=== PATIENT | male | born 1985 | race Caucasian/White ===

== ENCOUNTER 2021-10-11 10:49 | Emergency (ER) | payer OTHER, SELFPAY ==
--- NOTE | 2021-10-11 10:53 | ED.GENADULT ---
HPI - General Adult General Chief complaint: Upper Respiratory Infection Stated complaint: congestion,sorethroat Time Seen by Provider: 10/11/21 10:53 History of Present Illness HPI narrative: 36-year-old male patient presents to the [facility] with complaints of sinus congestion, runny nose, stuffy nose, decreased hearing to the right ear that has now started to the left ear, and cough that started approximately 2 and half to 3 weeks ago. Patient states that he has not vaccinated against COVID and his was diagnosed with COVID about the time that his symptoms started. Patient states he tested 3 times and every time came up negative. Patient states he was seen earlier this week on Wednesday and was given steroids of 20 mg a day for 5 days. Patient states he feels like it has not really done too much. Patient has also been taking [id number] Mucinex for his symptoms. Denies fever but states he feels like his symptoms are worsening. Denies any history of smoking. Related Data Allergies Allergy/AdvReac Type Severity Reaction Status Date / Time latex Allergy Unknown Verified 10/11/21 11:10 Review of Systems Review of Systems: CONSTITUTIONAL: Denies fever, chills, or sweats. EYES: Denies visual changes, redness, or discharge. ENT: Positive rhinorrhea, congestion, denies sore throat, positive bilateral otalgia. CARDIOVASCULAR: Denies chest pain, palpitations, or edema. RESPIRATORY: Positive productive cough, denies dyspnea. GASTROINTESTINAL: Denies abdominal pain, nausea, vomiting, or diarrhea. GENITOURINARY: Denies dysuria or hematuria. SKIN: Denies rash or itching. MUSCULOSKELETAL: Denies back pain, joint pain, or myalgia. NEUROLOGIC: Positive headache, denies numbness, or weakness. PSYCHIATRIC: Denies anxiety or depression. PMFSH Comments At the time of my signature I agree with nursing past medical history, surgical, social, and family history. There is no relevant family history pertinent to the presenting complaint. Exam Narrative: GENERAL: Well-appearing, well-nourished, and in no acute distress. HEAD: Normocephalic, atraumatic. EYES: PERRLA and EOMI. ENT: Nares with erythema and edema noted bilaterally with the left nare swollen shut, yellow rhinorrhea, no epistaxis. Mucous membranes moist. Posterior pharynx with no erythema, tonsil enlargement, exudates or lesions present. The right TM does have some yellow pus noted behind the eardrum. The left TM does look slightly injected. No foreign bodies noted to the canals. NECK: Supple. No lymphadenopathy CHEST: Clear to auscultation. No respiratory distress. Patient able to talk in clear complete sentences. Does have a mild cough noted during exam HEART: Regular rate and rhythm. No murmur heard. Normal peripheral pulses. ABDOMEN: Soft, nontender, nondistended, normal active bowel sounds. EXTREMITIES: Normal range of motion. No edema. SKIN: Warm, dry, no rash. NEURO: No focal deficits. Alert and oriented x3. Course Course Level of Care: Express Care Visit Vital Signs Vital signs: Vital Signs Temperature 37.2 C 10/11/21 11:02 Pulse Rate 105 H 10/11/21 11:02 Respiratory Rate 18 10/11/21 11:02 Blood Pressure 138/81 10/11/21 11:02 Pulse Oximetry 99 10/11/21 11:02 Oxygen Delivery Room Air 10/11/21 11:02 Temperature 37.2 C 10/11/21 11:02 Pulse Rate 105 H 10/11/21 11:02 Respiratory Rate 18 10/11/21 11:02 Blood Pressure 138/81 10/11/21 11:02 Pulse Oximetry 99 10/11/21 11:02 Oxygen Delivery Room Air 10/11/21 11:02 Medical Decision Making MDM Narrative Medical decision making narrative: Discussed with patient that given the fact that he has had symptoms now for almost 3 weeks and he has already completed a course of steroids and continues to have symptoms we will go ahead and discharge him home today with oral antibiotics for possible sinus infection as well as an ear infection. Discussed with him that we will also dischar
[2021-10-11 11:02] VITALS: BP 138/81; PULSE 105; RESP 18; TEMP 37.2; O2SAT 99
== END 2021-10-11 11:28 | disposition home or self-care (01) ==
PROVIDERS: Emergency Provider Nurse Practitioner Family
DX: J06.9 Acute upper respiratory infection, unspecified (principal); H66.91 Otitis media, unspecified, right ear; J01.90 Acute sinusitis, unspecified; Z28.310 Unvaccinated for COVID-19
CPT/HCPCS: 99203; G0463